=== PATIENT | female | born 1980 | race Caucasian/White ===

== ENCOUNTER → 2017-01-15 | Day surgery (SDC) | payer OTHER ==
[~2017-01-15] VITALS: Ht 152.4 cm; Wt 105.2 kg
[~2017-01-15] MED LIST: ALBUTEROL0.09 MG/A1 INH; AUGMENTIN 500-1 EACH PO; BACTRIM 400-801 EACH PO; BACTRIM DS 8001 TAB PO; CEPHALEXIN500 M3 PO; CHLORHEXIDINE TOP; DIFLUCAN150 MG PO; IBUPROFEN600 M1 PO; KEFLEX500 MG PO; MIRENA1 EACH PO; TRAMADOL50 MG PO
[2017-01-15 10:49] LABS: ABSOLUTE BASOPHIL COUNT 0.1 /CUMM (0.0-0.2); ABSOLUTE EOSINOPHIL COUNT 0.2 /CUMM (0.0-0.7); ABSOLUTE GRANULOCYTE CT 5.8 /CUMM (1.4-6.5); ABSOLUTE LYMPH COUNT 2.8 /CUMM (1.2-3.4); ABSOLUTE MONOCYTE COUNT 0.6 /CUMM (0.10-0.60); BASOPHIL % 0.6 % (0.0-2.0); EOSINOPHIL % 1.8 % (0-5); GRANULOCYTE % 61.6 % (42.2-75.2); HEMATOCRIT 41.2 % (37-47); MEAN CORPUSCULAR VOLUME 87.7 FL (81.0-99.0); MEAN PLATELET VOLUME 6.8 FL (7.4-10.4); PLATELET COUNT 389 /CUMM (130-400); RBC DISTRIBUTION WIDTH 12.4 % (11.5-14.5); WHITE BLOOD CELL COUNT 9.4 /CUMM (4.8-10.8)
--- NOTE | 2017-01-16 10:32 | Operative Report ---
Operative/Inv Procedure Report Surgery Date: 01/15/17 Name of Procedure: Bilateral reduction mammoplasty Pre-Operative Diagnosis: Symptomatic macromastia Post-Operative Diagnosis: Same Estimated Blood Loss: scant (200) Surgeon/Bank Cashier: GWEN QUIROGA MD Anesthesia: general endotracheal tube Operative/Procedure Note Note: The procedure the alternatives the risks and expected outcomes were discussed with the patient in regards to her request for surgical intervention to treat symptomatic macromastia. The patient was given a pass PS informed consent which she return sign has no further questions regarding it. Discussed definitely visible scarring possibly unsightly or symptomatic hematoma seroma infection bleeding pain and definite asymmetry. She was advised further weight loss could result in breasts are too small for her liking. She agreed to proceed at this weight. She was marked in the standing position for an inferior pedicle Mcbride pattern technique with the use of a measuring tape. She was brought to the operative placed supine on the table. Venodyne boots are placed and then general endotracheal anesthesia was established intravenous antibiotics were given. The chest was prepped and draped in usual sterile fashion. A free pedicle Mcbride pattern technique was performed resecting superior medial and lateral quadrants. She was then put in the sitting position to rupesh the nipple areola complexes. 3 layer closure was carried out of all wounds. End dictation
== END ==
LOC: STS 01:12
PROVIDERS: Surgery Plastic and Reconstructive Surgery
DX: N62 Hypertrophy of breast (principal); J45.909 Unspecified asthma, uncomplicated; Z87.891 Personal history of nicotine dependence; Z22.322 Carrier or suspected carrier of Methicillin resistant Staphylococcus aureus
CPT/HCPCS: 36415; 81025; 88305; J0131; J0690; J1100; J2250; J2405; J3250

== ENCOUNTER 2017-01-24 11:34 | Inpatient (IN) | payer OTHER ==
[~2017-01-24] VITALS: Ht 149.9 cm; Wt 97.5 kg
[~2017-01-24 11:34] MED LIST changes: -CEPHALEXIN500 M3 PO
--- NOTE | 2017-01-24 11:43 | NUR ---
C/O PAIN, SWELLING AND YELLOW DRAINAGE TO LEFT BREAST INCISION LINE X 4 DAYS. S/P BREAST REDCUCTION ON 01/[address] QUIROGA YESTERDAY, PUT ON KEFLEX, HAS HAD 5 DOSES, PAIN AND SWELLING WORSE TODAY.
--- NOTE | 2017-01-24 12:04 | NUR ---
OLIVE KIDD AT BEDSIDE FOR EVAL.
--- NOTE | 2017-01-24 12:09 | ED SKIN/ALLERGY COMPLAINT ---
History of Present Illness General Chief Complaint: General Adult Stated Complaint: BREAST SURGERY X 8 DAYS C/O INFECTION Source: patient Exam Limitations: no limitations Vital Signs & Intake/Output Vital Signs & Intake/Output Vital Signs Date Time Temp Pulse Resp B/P Pulse O2 O2 Flow FiO2 Ox Delivery Rate 01/24 1341 97.4 76 18 124/85 98 Room Air 01/24 1141 96.8 111 16 117/83 97 Room Air Allergies Coded Allergies: No Known Drug Allergies (Intermediate, NONE 01/24/17) shellfish derived (SWELLING AROUND AND IN EYES, ITCHING THROAT 03/05/16) Reconcile Medications Albuterol Sulfate (Albuterol Sulfate Hfa) 0.09 MG/Actuation LEE 2 PUFF INH PRN ASTHMA (Reported) 90 MCG PER PUFF Cephalexin 500 MG CAPSULE 1 CAP PO BID CELLULITIS (Reported) Ibuprofen 600 MG TABLET 1 TAB PO TID PAIN with food Levonorgestrel (Mirena) 52 MG ICR CONTROL (Reported) Triage Note: CO PAIN, SWELLING AND YELLOW DRAINAGE TO LEFT BREAST INCISION LINE X 4 DAYS. S/P BREAST REDCUCTION ON 01/[address] QU[address]GA[address] QUIROGA YESTERDAY, PUT ON KEFLEX, HAS HAD 5 DOSES, PAIN AND SWELLING WORE TODAY. Triage Nurses Notes Reviewed? yes : No Patient currently breastfeeds: No HPI: 36-year-old female arrived through triaged to room #7 for evaluation of bilateral breast pain. She had a breast reduction with Dr. Snow one week ago. She started with increased pain in both of her breasts along with increased drainage to incision areas. She saw Dr. Snow yesterday and was started on cephalexin. She was instructed to come to the emergency department if pain, swelling and drainage got worse. She reports the pain is moderate to severe and the drainage is worse. She denies fever or chills, abdominal pain. She denies nausea vomiting or diarrhea. (MARTI CARDENAS APRN) Past History Travel History Traveled to [place] past 21 day No Medical History Any Pertinent Medical History? see below for history Neurological: NONE EENT: NONE Cardiovascular: NONE Respiratory: asthma Gastrointestinal: NONE Hepatic: NONE Renal: NONE Musculoskeletal: NONE Psychiatric: NONE Endocrine: NONE Blood Disorders: NONE Cancer(s): NONE JUDICIAL REGISTRAR/Reproductive: NONE Other Medical Hx: Pilonidal cyst Surgical History Surgical History: BILATERAL BREAST REDUCTION Psychosocial History What is your primary language Kazakh Tobacco Use: Never used ETOH Use: denies use Illicit Drug Use: denies illicit drug use Family History Hx Contributory? No (MARTI CARDENAS APRN) Review of Systems Review of Systems Constitutional: Reports: no symptoms. EENTM: Reports: no symptoms. Respiratory: Reports: no symptoms. Cardiovascular: Reports: no symptoms. GI: Reports: no symptoms. Genitourinary: Reports: no symptoms. Musculoskeletal: Reports: no symptoms. Skin: Reports: see HPI. Neurological/Psychological: Reports: no symptoms. Hematologic/Endocrine: Reports: no symptoms. Immunologic/Allergic: Reports: no symptoms. All Other Systems: Reviewed and Negative (MARTI CARDENAS APRN) Physical Exam Physical Exam General Appearance: well developed/nourished, mild distress Head: atraumatic Eyes: Bilateral: PERRL, EOMI. Ears, Nose, Throat: normal pharynx, normal ENT inspection, hearing grossly normal Neck: normal inspection, supple Respiratory: normal breath sounds Cardiovascular: regular rate/rhythm Gastrointestinal: soft, non-tender Back: normal inspection Extremities: normal inspection, normal range of motion, no edema Neurologic/Psych: awake, alert, oriented x 3, normal mood/affect Skin: BILATERAL BREAST ERYTHEMA, INDURATION, SEROUS DRAINAGE FROM INCISION SITES BILATERAL BREAST RIGHT WORSE THAN LEFT. eXCORIATED AREAS TO RIGHT BREAST Lymphatic: no anterior cervical adriana Diagram Chest, Abdomen, Back: 1) Erythema, induration 2) Erythema, induration 3) Incision site drainage with serous fluid 4) In incision site drainage with serous fluid (MARTI CARDENAS APRN) Progress Differential Diagnosis: CELLULITIS MASTITIS Plan of Care: Orders Procedure Date/time Status CBC WITHOUT DIFFERENTIAL 01/25 0600 Active Pathway - chart 01/24 1418 Active Add-on Test (ER Only) 01/24 1354 Active Pathway - chart 01/24 1339 Active House Staff 01/24 1339 Active Code Status 01/24 1339 Active Pathway - chart 01/24 1337 Active Patient Data 01/24 1328 Active TRUNK AREA CULTURE 01/24 1323 Active Admit to inpatient 01/24 1321 Active LACTIC ACID 01/24 1214 Complete Saline Lock 01/24 1210 Active Add-on Test (ER Only) 01/24 1210 Active BLOOD CULTURE 01/24 1210 Active HUMAN BETA HCG SCREEN 01/24 121 Complete COMPREHENSIVE METABOLIC PANEL 01/24 121 Complete CBC WITHOUT DIFFERENTIAL 01/24 1210 Complete VTE Mechanical Prophylaxis 01/24 UNK Active Vital Signs 01/24 UNK Active Intake & Output 01/24 UNK Active PHYSICIAN CONSULT 01/24 UNK Active Current Medications Sig/Angy Start time Last Medication Dose Stop Time Status Admin Vancomycin HCl 1,000 MG Q12H 01/25 0130 AC Dextrose/Water 250 ML (D5W) Acetaminophen 650 MG Q6P PRN 01/24 1430 AC (Tylenol) Acetaminophen/ 1 TAB Q6P PRN 01/24 1430 AC Hydrocodone Bitart (Vicodin) Albuterol Sulfate 2 PUF Q4 HRS NEEDED PRN 01/24 143 AC (Ventolin) Ibuprofen 600 MG Q6P PRN 01/24 143 CAN (Motrin) Morphine Sulfate 2 MG Q4P PRN 01/24 1430 AC (Morphine) Enoxaparin Sodium 40 MG DAILY 01/24 1339 AC (Lovenox) Laboratory Tests 01/24/17 1337: Lactic Acid Cancelled 01/24/17 1214: Anion Gap 9, Estimated GFR > 60, BUN/Creatinine Ratio 13.3, Glucose 111 H, Lactic Acid 1.4, Calcium 9.2, Total Bilirubin 0.4, AST 30, ALT 55 H, Alkaline Phosphatase 69, Total Protein 6.5, Albumin 3.5, Globulin 3.0, Albumin/Globulin Ratio 1.2, Total Beta HCG NEGATIVE, CBC w Diff NO MAN DIFF REQ, RBC 4.13 L, MCV 87.9, MCH 28.7, RDW 12.9, MPV 6.3 L, Gran % 68.9, Lymphocytes % 22.9, Monocytes % 2.6, Eosinophils % 5.4 H, Basophils % 0.2, Absolute Granulocytes 10.4 H, Absolute Lymphocytes 3.4, Absolute Monocytes 0.4, Absolute Eosinophils 0.8, Absolute Basophils 0, PUBS MCHC 32.7 L Microbiology 01/24 133 TRUNK: Culture & Sensitivity - RECD 01/24 1338 TRUNK: Gram Stain - RECD 01/24 1218 BLOOD: Blood Culture - RECD 01/24 1214 BLOOD: Blood Culture - RECD Comments: 1:12 PM I spoke to Mitch Quiroga MD. I will call the hospitalist and admit her to medicine for cellulitis and he will be in the hospital on Thursday if she is still here. He instructed me to have her do Xeroform dressings daily, warm showers and to check for MRSA with wound culture. 1:54 PM Xeroform dressing applied by me. MRSA culture sent from left breast guarding notified and orders being placed. Vancomycin 1 g being administered at this point for history of MRSA in the past. (MARTI CARDENAS APRN) Departure Departure Time of Disposition: 1326 Disposition: STILL A PATIENT Condition: Stable Clinical Impression Primary Impression: Cellulitis Qualifiers: Site of cellulitis: other site Qualified Code: L03.818 - Cellulitis of other sites Referrals: AVEL WILLS,CATHERINE Moe (PCP/Family) Departure Forms: Customer Survey General Discharge Information Admission Note Spoke With: ELI WILLS,AMBAR Petit Documentation of Exam: Documentation of any treatments & extenuating circumstances including Concerns Regarding Discharge (functional status, medication knowledge or non-compliance, living conditions, etc.) that warrant an admission rather than observation: The patient will be admitted to general medicine for IV antibiotics coverage for MRSA also IV pain medication. She failed outpatient antibiotics, infection getting worse. I spoke to Ambar Queen MD and Mitch Quiroga MD. (MARTI CARDENAS APRN) PA/CHIPPER MACHINE OPERATOR Co-Sign Statement Statement: ED Attending supervision documentation- [X] I saw and evaluated the patient. I have also reviewed all the pertinent lab results and diagnostic results. I agree with the findings and the plan of care as documented in the PA's/CHIPPER MACHINE OPERATOR's documentation. [X] I have reviewed the ED Record and agree with the PA's/CHIPPER MACHINE OPERATOR's documentation. [] Additions or exceptions (if any) to the PAs/CHIPPER MACHINE OPERATOR's note and plan are summarized below: [] (TRICE WILLS,ARIEL Durant)
--- NOTE | 2017-01-24 12:25 | NUR ---
PT MEDICATED PER EMAR AT THIS TIME
[2017-01-24 12:29] LABS: ABSOLUTE BASOPHIL COUNT 0 /CUMM (0.0-0.2); ABSOLUTE EOSINOPHIL COUNT 0.8 /CUMM (0.0-0.7); ABSOLUTE GRANULOCYTE CT 10.4 /CUMM (1.4-6.5); ABSOLUTE LYMPH COUNT 3.4 /CUMM (1.2-3.4); ABSOLUTE MONOCYTE COUNT 0.4 /CUMM (0.10-0.60); BASOPHIL % 0.2 % (0.0-2.0); EOSINOPHIL % 5.4 % (0-5); GRANULOCYTE % 68.9 % (42.2-75.2); HEMATOCRIT 36.3 % (37-47); MEAN CORPUSCULAR HGB 28.7 PG (27.0-31.0); MEAN CORPUSCULAR HGB CONC 32.7 G/DL (33.0-37.0); MEAN CORPUSCULAR VOLUME 87.9 FL (81.0-99.0); MEAN PLATELET VOLUME 6.3 FL (7.4-10.4); PLATELET COUNT 596 /CUMM (130-400); RBC DISTRIBUTION WIDTH 12.9 % (11.5-14.5); RED BLOOD CELL CT 4.13 /CUMM (4.20-5.40)
--- NOTE | 2017-01-24 13:19 | NUR ---
PT STATES PAIN ISNT ANY BETTER AFTER MEDICATION ADMINISTRATION. ELIGIBILITY WORKER AWARE
--- NOTE | 2017-01-24 13:28 | NUR ---
PT MEDICATED WITH 4MG MORPINE PER ORDER AT THIS TIME.
--- NOTE | 2017-01-24 13:40 | NUR ---
IV VANCO INFUISNG PER ORDER AT THIS TIME. PROCESS DEVELOPMENT ENGINEER AT BEDSIDE TO DISUCSS PLAN OF CARE WITH PT.
--- NOTE | 2017-01-24 13:53 | NUR ---
PT TO ROOM [id number]
--- NOTE | 2017-01-24 14:01 | Admission Certification ---
Admission Certification Certification Statement - As attending physician, I certify that at the time of - admission, based on clinical presentation, severity of - symptoms, need for further diagnostic testing and - therapeutic interventions, and risk of adverse outcomes - without in-hospital treatment, in my clinical assessment, - this patient requires an acute hospital stay for a minimum - of two nights or longer. I have also considered psychsocial - factors such as support system, advanced age, financial - issues, cognitive issues, and failed out-patient treatments, - past re-admission history, safety of patient, and lack of - compliance as applicable. Specific rationale supporting this admission is: Cellulitis with some purulence in a patient with breast reduction surgery and previous history of MRSA.
[2017-01-24] MEDS ORDERED: CEPHALEXIN500 M3 PO (14:20)
--- NOTE | 2017-01-24 14:21 | NUR ---
REPORT GIVEN TO FLOOR. DISTRIBUTION CALLED FOR TRANSPORT
--- NOTE | 2017-01-24 14:42 | History & Physical ---
BRIDGET YUNG MD 01/24/17 1433: General Information and HPI History of Present Illness: 36 year old woman with past medical history of asthma seen for evaluation of bilateral breast pain. On 01/16/17 patient underwent bilateral breast reduction surgery with Dr. Blas. Approximately 4-5 days ago patient began to experience worsening pain in the surgical incision sites with a rash and associated clear drainage over the next several days. She was seen by Dr. Blas in the office on 01/23/17 and given a course of Keflex with instruction to report to the ED should her symptoms acutely worsen. Presently she reports persistent moderate bilateral breast pain with drainage. She also comments on a progressive with with upper middle chest swelling/ fullness. There is associated nonbreast breast pain described as pins/needles in various locations of her chest. Otherwise she denies any headache, fever, chills, palpitations, shortness of breath, cough, nausea, vomiting, diarrhea. PMHx - Asthma, pilonidal cyst, MRSA Social History - Patient does not smoke or drink Allergies/Medications Allergies: Coded Allergies: No Known Drug Allergies (Intermediate, NONE 01/24/17) shellfish derived (SWELLING AROUND AND IN EYES, ITCHING THROAT 03/05/16) Home Med list Albuterol Sulfate (Albuterol Sulfate Hfa) 0.09 MG/Actuation LEE 2 PUFF INH PRN ASTHMA (Reported) 90 MCG PER PUFF Cephalexin 500 MG CAPSULE 1 CAP PO BID CELLULITIS (Reported) Ibuprofen 600 MG TABLET 1 TAB PO TID PAIN with food Levonorgestrel (Mirena) 52 MG ICR CONTROL (Reported) Past History Travel History Traveled to [place] past 21 day No Medical History Neurological: NONE EENT: NONE Cardiovascular: NONE Respiratory: asthma Gastrointestinal: NONE Hepatic: NONE Renal: NONE Musculoskeletal: NONE Psychiatric: NONE Endocrine: NONE Blood Disorders: NONE Cancer(s): NONE TICKET COLLECTOR OR USHER/Reproductive: NONE Other Medical Hx: Pilonidal cyst Surgical History Surgical History: BILATERAL BREAST REDUCTION Past Family/Social History Psychosocial History Smoking Status: Former Smoker ETOH Use: denies use Illicit Drug Use: denies illicit drug use Review of Systems Review of Systems Constitutional: Reports: see HPI. Exam & Diagnostic Data Last 24 Hrs of Vital Signs/I&O Vital Signs Date Time Temp Pulse Resp B/P Pulse O2 O2 Flow FiO2 Ox Delivery Rate 01/24 1341 97.4 76 18 124/85 98 Room Air 01/24 1141 96.8 111 16 117/83 97 Room Air Intake & Output 01/24 1600 01/24 0800 01/24 0000 Intake Total Output Total Balance Patient 97.522 kg Weight Physical Exam General Appearance Alert, Oriented X3, Cooperative, No Acute Distress Skin Indurated/Erythematous rash under bilateral breast with scant amount of clear drainage HEENT Atraumatic, EOMI, Mucous Membr. moist/pink Neck Supple Cardiovascular Regular Rate, Normal S1, Normal S2, No Murmurs Lungs Clear to Auscultation, Normal Air Movement Abdomen Normal Bowel Sounds, Soft, No Tenderness, No Hepatospenomegaly, No Masses Neurological Normal Speech, Normal Tone, Cranial Nerves 3-12 NL Extremities No Clubbing, No Cyanosis, No Edema, Normal Pulses, No Tenderness/ Swelling Vascular Normal Pulses, Pulses Symmetrical Breasts Skin changes described as above, Recent surgical incisions that appears infected, Mid/upper chest fullness with swelling Last 24 Hrs of Labs/Maciej: Laboratory Tests 01/24/17 1337: Lactic Acid Cancelled 01/24/17 1214: Anion Gap 9, Estimated GFR > 60, BUN/Creatinine Ratio 13.3, Glucose 111 H, Lactic Acid 1.4, Calcium 9.2, Total Bilirubin 0.4, AST 30, ALT 55 H, Alkaline Phosphatase 69, Total Protein 6.5, Albumin 3.5, Globulin 3.0, Albumin/Globulin Ratio 1.2, Total Beta HCG NEGATIVE, CBC w Diff NO MAN DIFF REQ, RBC 4.13 L, MCV 87.9, MCH 28.7, RDW 12.9, MPV 6.3 L, Gran % 68.9, Lymphocytes % 22.9, Monocytes % 2.6, Eosinophils % 5.4 H, Basophils % 0.2, Absolute Granulocytes 10.4 H, Absolute Lymphocytes 3.4, Absolute Monocytes 0.4, Absolute Eosinophils 0.8, Absolute Basophils 0, PUBS MCHC 32.7 L Microbiology 01/24 1338 TRUNK: Culture & Sensitivity - RECD 01/24 1338 TRUNK: Gram Stain - RECD 01/24 1218 BLOOD: Blood Culture - RECD 01/24 121 BLOOD: Blood Culture - RECD Assessment/Plan Assessment: 36 year old woman with signficant past medical history of MRSA seen one week after bilateral breast reduction surgery complaining of chest pain, rash, swelling, and drainage from the surgical incisions. ED Course: -Vitals: Temp 96.8-97.4, HR 76-111, RR 16-18, BP 117-124/83-85, O2 97-98% on room air -Significant Labs: WBC 15.0, Hgb/Hct 11.9/36.3, Plt 596, normal serum chemistries, lactic acid 1.4, AST/ALT 30/55, b-HCG negative -Studies:None -Interventions: Vancomycin 1g IV, Unasyn 3g IV, Morphine 6mg, Blood Cultures, Trunk Cultures Surgical Incision Cellulitis / Sepsis Patient with history of MRSA and recent bilateral breast reduction surgery seen for developement of a rash and drainage of the surgical incision sites. Patient meets criteria for sepsis with tachycardia and leukocystosis with her obvious cell wall cellulitis. Lactic acid normal. -General Medicine -Vancomycin 1g IV Q12H -Plastic surgery consult -Follow up cultures & sensitivities Asthma-Albuterol PRN Pain Plan- Acetaminophen/Oxycodone/Morphine Diet-Regular Diet DVT PPx- Lovenox Code Status- FULL CODE As Ranked By This Provider Problem List: 1. Cellulitis Qualifiers Site of cellulitis: other site Qualified Code: L03.818 - Cellulitis of other sites 2. Abscess or cellulitis of chest wall Core Measures/Miscellaneous Acute Coronary Syndrome ACS Diagnosis: No Cerebrovascular Accident CVA/TIA Diagnosis: No Congestive Heart Failure CHF Diagnosis: No Venous Thromboembolism VTE Risk Factors: Acute medical illness, Obesity No Mech VTE prophylaxis d/t: No contraindications No VTE Pharm Prophylaxis d/t: No contraindications VTE Diagnosis: No VTE Type: NONE VTE Confirmed by (Test): NONE Severe Sepsis Severe Sepsis Present: No Septic Shock Septic Shock Present: No Miscellaneous Documentation Attending Case Discussed With: ELI WILLS,SARAH Petit Primary Care Physician: CATHERINE VALLECILLO MD Patient sees these Specialists Dr. Blas Level of Patient Care: General Medicine Consults Needed: Consulting Specialty: Plastic Surgery PATRICIA WILLS,FRANK 01/24/17 1624: Resident Review Statement Resident Statement: examined this patient, discussed with technology development intern, agreed with technology development intern, discussed with family, reviewed EMR data (avail), discussed with nursing , reviewed images, amended to note Other Findings: 36 yo female with pmh of asthma, morbid obesity (BMI 43), hx of MRSA abcess ( 2016), s/p bilateral breast reduction surgery on 01/15/[address] Blas came from home with bilateral breast cellulitis. She had worsening pain, edema and clear fluid drainage about 4-5 days ago. She didn't have fever. She was seen by Dr. Blas 1 DA and was given po cephalexin. However, her symptoms got worsened and she came to ED today. She c/o bilateral breast fullness and sharp/needle-like pain 01/09. She was taking advil/vicodin at home. V/S: afebrile, tachycardia at 111, BP 117/83, Labs: WBC 15, lactic acid normal, b-hcg normal. No imaging tests done. 1. Bilateral breast cellulitis: blood cultures & superficial wound cultures were sent from ED. Will treat her with IV vancomycin 1g q12 for possible MRSA cellulitis with recent surgery. Plastic surgery was contacted in ED. I spoke with Dr. Blas regarding patient care, and he recommended daily xeroform dressing change with conservative management. Will use pain pathway to manage pain. 2. Hx of asthma: c/w home dose INH as needed. 3. Morbid obesity: follow up primary doctor as outpt for a long-term weight loss plan. DVT ppx: SC lovenox, full code. pain pathway. SRAAH BENITEZ MD 01/24/17 1720: Attending MD Review Statement Attending Statement Attending MD Statement: examined this patient, discuss w/resident/PA/FLOWER CUTTER, agreed w/resident/PA/FLOWER CUTTER, reviewed EMR data (avail), discussed with nursing, discussed with case mgmt, reviewed images Attending Assessment/Plan: 36-year-old female with morbid obesity as documented by a BMI of 40 status post recent breast reduction surgery who is here with what appears to be a cellulitis. Along the incision lines there is erythema and some serosanguineous discharge. She has a white count of 15,000 and tachycardic to 111 and this is despite getting by mouth Keflex by the plastic surgeon. At this point will bring her into general med, give IV Vanco as she has grown MRSA in the past and I am worried about an MRSA infection. Treat her symptomatically for pain, put her on DVT prophylaxis and call plastic surgery for an official consult. Treat her mild persistent intermittent asthma with an albuterol inhaler when necessary.
[2017-01-24 15:26] VITALS: BP 112/62
--- NOTE | 2017-01-24 16:00 | NUR ---
NURSING NOTE: PT ARRIVED TO FLOOR VIA STRETCHER AT 1500. PT A&O, VSS CHARTED. DSG TO SOLANGE BREAST CDI. SOLANGE BREAST AND UNDER BREAST NOTED TO BE RED AND SWOLLEN AND PAINFUL TO TOUCH. PT STATED PAIN OF 3/10 AT TIME OF ADMISSION. PT ORIENTED TO ROOM AND CALL FONTANA. WILL CONTINUE TO MONITOR.
[2017-01-24 22:06] VITALS: BP 112/80
[2017-01-25 06:55] LABS: ABSOLUTE BASOPHIL COUNT 0 /CUMM (0.0-0.2); ABSOLUTE EOSINOPHIL COUNT 0.7 /CUMM (0.0-0.7); ABSOLUTE GRANULOCYTE CT 9.3 /CUMM (1.4-6.5); ABSOLUTE LYMPH COUNT 3.3 /CUMM (1.2-3.4); ABSOLUTE MONOCYTE COUNT 0.9 /CUMM (0.10-0.60); BASOPHIL % 0.3 % (0.0-2.0); EOSINOPHIL % 5.2 % (0-5); HEMATOCRIT 34.5 % (37-47); MEAN CORPUSCULAR HGB 28.8 PG (27.0-31.0); MEAN CORPUSCULAR HGB CONC 32.6 G/DL (33.0-37.0); MEAN CORPUSCULAR VOLUME 88.2 FL (81.0-99.0); MEAN PLATELET VOLUME 6.2 FL (7.4-10.4); PLATELET COUNT 573 /CUMM (130-400); RBC DISTRIBUTION WIDTH 13.1 % (11.5-14.5); RED BLOOD CELL CT 3.91 /CUMM (4.20-5.40); WHITE BLOOD CELL COUNT 14.4 /CUMM (4.8-10.8)
[2017-01-25 07:31] VITALS: BP 119/56
--- NOTE | 2017-01-25 08:54 | PN- Housestaff ---
AGA WILLS,BRIDGET 01/25/17 0853: Subjective Follow-up For: Bilateral breast cellulitis status post breast reduction surgery Subjective: Patient seen and examined. She is seen sitting upright in bed resting comfortably. She appears to be in no acute distress. She states that the swelling in her chest has gone down today but admits to persistent pain/ discomfort under her breasts with scant amount of clear drainage. Otherwise she feels fine and denies any subjective fever and is requesting to be discharged. She denies any lightheadedness/dizziness, headache, chills, chest pain, palpitations, shortness of breath, cough, nausea, vomiting, diarrhea. No overnight events reported. Review of Systems Constitutional: Reports: see HPI. Objective Last 24 Hrs of Vital Signs/I&O Vital Signs Date Time Temp Pulse Resp B/P Pulse O2 O2 Flow FiO2 Ox Delivery Rate 01/25 0731 98.5 89 18 119/56 94 Room Air 01/24 2206 98.6 84 18 112/80 98 Room Air 01/24 1526 98.1 96 20 112/62 98 Room Air Room Air 01/24 1341 97.4 76 18 124/85 98 Room Air Intake & Output 01/25 1600 01/25 0800 01/25 0000 Intake Total 760 1080 Output Total Balance 760 1080 Intake, IV 280 Intake, Oral 480 1080 Physical Exam General Appearance: Alert, Oriented X3, Cooperative, No Acute Distress Other Physical Findings: General -well-developed, well-nourished obese woman in no acute distress HEENT - NCAT, PERRL, EOMI, anicteric sclera Cardio - S1, S2 w/o murmurs/gallops/rubs Breasts-diffuse tenderness to chest with erythematous/indurated surgical incisions associated with scant clear drainage under bilateral breasts, tense nonfluctuant swelling to upper/mid chest Resp - CTA bilaterally w/o wheezing/rhochi/crackles GI - soft, nontender, nondistended, bowel sounds present Neuro - Awake and alert, CN II - XII grossly intact Extremities - no edema, pulses intact Current Medications: Current Medications Sig/Angy Start time Last Medication Dose Route Stop Time Status Admin Acetaminophen 650 MG Q6P PRN 01/24 1430 AC PO Acetaminophen/ 1 TAB Q6P PRN 01/24 1430 AC 01/25 Hydrocodone Bitart PO 1110 Albuterol Sulfate 2 PUF Q4 HRS NEEDED PRN 01/24 1430 AC INH Enoxaparin Sodium 40 MG DAILY@1700 01/25 1700 AC SC Enoxaparin Sodium 40 MG DAILY 01/24 1339 DC 01/24 SC 1718 Ibuprofen 600 MG Q6P PRN 01/24 1430 CAN PO Morphine Sulfate 2 MG Q4P PRN 01/24 1430 AC IV Patient Medication 1 UNIT ONE NR 01/24 1415 DC 01/24 Teaching ED 01/24 1500 1717 Vancomycin HCl 1,000 MG Q12H 01/25 0130 AC 01/25 Dextrose/Water 250 ML IV 1257 Vancomycin HCl 1,000 MG ONCE ONE 01/24 1330 DC 01/24 Dextrose/Water 250 ML IV 01/24 1429 1339 Last 24 Hrs of Lab/Maciej Results Last 24 Hrs of Labs/Mics: Laboratory Tests 01/25/17 0620: CBC w Diff NO MAN DIFF REQ, RBC 3.91 L, MCV 88.2, MCH 28.8, RDW 13.1, MPV 6.2 L, Gran % 65.0, Lymphocytes % 23.1, Monocytes % 6.4, Eosinophils % 5.2 H, Basophils % 0.3, Absolute Granulocytes 9.3 H, Absolute Lymphocytes 3.3, Absolute Monocytes 0.9 H, Absolute Eosinophils 0.7, Absolute Basophils 0, PUBS MCHC 32.6 L Assessment/Plan Assessment: Patient's physical exam demonstrates mildly clinically improved chest wall cellulitis. Patient was reportedly seen by Dr. Snow last night who made no formal recommendations. Given patient's history of MRSA patient is to be continued on intravenous antibiotics for another 24 hours and will be discharged on an equivalent oral antibiotic with instruction to follow-up with Dr. Snow in his office after discharge for further evaluation. Surgical Incision Cellulitis / Sepsis Patient with history of MRSA and recent bilateral breast reduction surgery seen for developement of a rash and drainage of the surgical incision sites. Patient meets criteria for sepsis with tachycardia and leukocystosis with her obvious cell wall cellulitis. Lactic acid normal. -General Medicine -Vancomycin 1g IV Q12H -Plastic surgery consult -Follow up cultures & sensitivities Asthma-Albuterol PRN Pain Plan- Acetaminophen/Oxycodone/Morphine Diet-Regular Diet DVT PPx- Lovenox Code Status- FULL CODE Problem List: 1. Cellulitis Pain Ratin Pain Location: Bilateral breasts Pain Goal: Pain 4 or less Pain Plan: See assessment Tomorrow's Labs & Rationales: CBC-cellulitis BEP-vancomycin Consulting Request: Consulting Specialty: Plastic Surgery SARAH BENITEZ MD 01/25/17 1022: Attending MD Review Statement Attending Statement Attending MD Statement: examined this patient, discuss w/resident/PA/CAN LINE OPERATOR, agreed w/resident/PA/CAN LINE OPERATOR, reviewed EMR data (avail), discussed with nursing, discussed with case mgmt Attending Assessment/Plan: Overall patient is feeling better however the incision areas remain very tender. We have her on IV Vanco for a suspected MRSA cellulitis status post breast reduction. White count gone from 15-14. I think she needs to stay for another 24 hours get some IV antibiotics, we need to be reassured that the white count going down in the right direction and likely discharge in a.m. with outpatient oral antibiotics and plastic surgery follow-up.
[2017-01-25 14:31] VITALS: BP 112/78
--- NOTE | 2017-01-25 22:30 | NUR ---
NURSING NOTE: LATE ENTRY, PT C/O OF TIGHTNESS AND FULLNESS IN CHEST. PT STATES CHEST PAIN LASTS FOR TWO MINUTES AND COMES AND GOES AND STATES SHE HAS BEEN FEELING LIKE THIS ALL DAY. VSS, AFEBRILE, CUTTER GRIND TOOL TECHNICIAN 204 MADE AWARE. NO FURTHER ACTIONS AT THIS TIME UNLESS PT C/O CHEST PAIN W/ SOB OR RADIATION TO JAW. WILL CONTINUE TO MONITOR.
[2017-01-25 22:47] VITALS: BP 104/70
[2017-01-26 06:29] VITALS: BP 123/73
--- NOTE | 2017-01-26 07:24 | PN- Housestaff ---
AGA WILLS,BRIDGET 01/26/17 0723: Subjective Follow-up For: Bilateral breast cellulitis status post breast reduction surgery Subjective: Patient seen and examined. She is seen sitting upright in bed resting comfortably. She appears to be in no acute distress. She states that she feels better today and reports mild improvement of her swelling/pain in her chest. She does admit to occasional chest wall pain described as pins and needles that has been persistent since the surgery. She denies any new subjective complaints today and is requesting to go home. Additionally she denies any headache, fever, chills, chest pain, palpitations, shortness of breath, cough, nausea, vomiting, diarrhea. No overnight events reported. Review of Systems Constitutional: Reports: see HPI. Objective Last 24 Hrs of Vital Signs/I&O Vital Signs Date Time Temp Pulse Resp B/P Pulse O2 O2 Flow FiO2 Ox Delivery Rate 01/26 0629 98.0 87 22 123/73 95 Room Air 01/25 2247 98.2 97 19 104/70 96 01/25 1431 97.8 88 18 112/78 97 Room Air Room Air Intake & Output 01/26 1600 01/26 0800 01/26 0000 Intake Total 120 940 Output Total Balance 120 940 Intake, Oral 120 940 Physical Exam General Appearance: Alert, Oriented X3, Cooperative, No Acute Distress Other Physical Findings: General -well-developed, well-nourished obese woman in no acute distress HEENT - NCAT, PERRL, EOMI, anicteric sclera Cardio - S1, S2 w/o murmurs/gallops/rubs Breasts-mild chest wall/breast tenderness with scant amount of clear drainage associated with surgical sites and marketed improvement to the erythematous induration in these breast folds Resp - CTA bilaterally w/o wheezing/rhochi/crackles GI - soft, nontender, nondistended, bowel sounds present Neuro - Awake and alert, CN II - XII grossly intact Extremities - no edema, pulses intact Current Medications: Current Medications Sig/Angy Start time Last Medication Dose Route Stop Time Status Admin Acetaminophen 650 MG Q6P PRN 01/24 1430 AC PO Acetaminophen/ 1 TAB Q6P PRN 01/24 1430 AC 01/26 Hydrocodone Bitart PO 0644 Albuterol Sulfate 2 PUF Q4 HRS NEEDED PRN 01/24 1430 AC INH Enoxaparin Sodium 40 MG DAILY@1700 01/25 1700 01/25 SC 1734 Morphine Sulfate 2 MG Q4P PRN 01/24 1430 01/25 IV 1541 Vancomycin HCl 1,000 MG Q12H 01/25 0130 01/26 Dextrose/Water 250 ML IV 0031 Last 24 Hrs of Lab/Maciej Results Last 24 Hrs of Labs/Mics: Laboratory Tests 01/26/17 0625: Anion Gap 8, Estimated GFR > 60, BUN/Creatinine Ratio 12.9, CBC w Diff Pending, WBC Pending, RBC Pending, Hgb Pending, Hct Pending, MCV Pending, MCH Pending, RDW Pending, Plt Count Pending, MPV Pending, Gran % Pending, Lymphocytes % Pending, Monocytes % Pending, Eosinophils % Pending, Basophils % Pending, Absolute Granulocytes Pending, Absolute Lymphocytes Pending, Absolute Monocytes Pending, Absolute Eosinophils Pending, Absolute Basophils Pending, PUBS MCHC Pending Assessment/Plan Assessment: Patient has clinically improving surgical site cellulitis while maintained on intravenous vancomycin for MRSA coverage. Microbiology reports demonstrate growth of coagulase negative Staphylococcus from the trunk most likely guest experience representative of normal skin gabe/contaminant. Ultrasound of the breast were obtained today that demonstrate bilateral large complex appearing fluid collections seen in the deep soft tissues consistent with large complex seroma cavities. Plastic surgery consult recommendations pending, call back requested from the office of Dr. Snow. Surgical Incision Cellulitis / Sepsis Patient with history of MRSA and recent bilateral breast reduction surgery seen for developement of a rash and drainage of the surgical incision sites. Patient meets criteria for sepsis with tachycardia and leukocystosis with her obvious chest wall cellulitis. Lactic acid normal. Ultrasound of the bilateral breasts demonstrated large complex appearing fluid collections seen in the deep soft tissues. -General Medicine -Vancomycin 1g IV Q12H -Plastic surgery consult -Trunk culture: Coagulase-negative Staphylococcus -Follow up cultures & sensitivities Asthma-Albuterol PRN Pain Plan- Acetaminophen/Oxycodone/Morphine Diet-Regular Diet DVT PPx- Lovenox Code Status- FULL CODE Problem List: 1. Abscess and cellulitis Pain Ratin Pain Location: Bilateral breasts Pain Goal: Pain 4 or less Pain Plan: See assessment Tomorrow's Labs & Rationales: None Consulting Request: Consulting Specialty: Plastic Surgery TRUDY SUE 01/26/17 1706: Attending MD Review Statement Attending Statement Attending MD Statement: examined this patient, discuss w/resident/PA/CAR LOADER, agreed w/resident/PA/CAR LOADER, reviewed EMR data (avail), discussed with nursing, discussed with case mgmt Attending Assessment/Plan: Patient seen and examined at bedside. Patient feels her pain and swelling has gone down in the breast area. But patient continues to have high white count so we will do a soft tissue ultrasound of the breast to rule out any abscesses. Soft tissue ultrasound of the breast was done and showed questionable fluid collections. We will discuss this finding with the plastic surgeon and formulate a plan accordingly. Continue current antibiotics. Discussed with patient the care plan
--- NOTE | 2017-01-26 07:27 | Patient Discharge Instructions ---
Discharge Instructions General Discharge Information You were seen/treated for: Bilateral surgical site infection, status post bilateral breast reduction surgery You had these procedures: Ultrasound guided aspiration of collection Special Instructions: YOU ARE LEAVING AGAINST MEDICAL ADVICE. Follow up with Dr. Snow on Thursday or earlier for further care and evaluation of your recent surgery. Please return to emergency if symptoms worsen. Continue all your previous medications. Diet Continue normal diet: Yes Activity Full Activity/No Limits: Yes Acute Coronary Syndrome Inclusion Criteria At DC or during hospital stay patient has or had the following: ACS DIAGNOSIS No Discharge Core Measures Meds if any: Prescribed or Continued at Discharge Meds if any: NOT Prescribed or Continued at Discharge Congestive Heart Failure Inclusion Criteria At DC or during hospital stay patient has or had the following: CHF DIAGNOSIS No Discharge Core Measures Meds if any: Prescribed or Continued at Discharge Meds if any: NOT Prescribed or Continued at Discharge Cerebrovascular accident Inclusion Criteria At DC or during hospital stay patient has or had the following: CVA/TIA Diagnosis No Discharge Core Measures Meds if any: Prescribed or Continued at Discharge Meds if any: NOT Prescribed or Continued at Discharge Venous thromboembolism Inclusion Criteria VTE Diagnosis No VTE Type NONE VTE Confirmed by (Test) NONE Discharge Core Measures - Per Current guidelines, there needs to be overlap - treatment for the first 5 days of Warfarin therapy. - If discharged on Warfarin prior to 5 days of - overlap therapy, the patient will need to be - assessed for post discharge needs including - *Post discharge parental anticoagulation - *Warfarin and/or parental anticoagulation education - *Follow up date to check INR post discharge At least 5 days overlap therapy as Inpatient No Meds if any: Prescribed or Continued at Discharge Note: Overlap Therapy is Warfarin and Anticoagulant Meds if any: NOT Prescribed or Continued at Discharge
[2017-01-26 08:42] LABS: ABSOLUTE BASOPHIL COUNT 0 /CUMM (0.0-0.2); ABSOLUTE EOSINOPHIL COUNT 0.7 /CUMM (0.0-0.7); ABSOLUTE GRANULOCYTE CT 9.5 /CUMM (1.4-6.5); ABSOLUTE LYMPH COUNT 3.7 /CUMM (1.2-3.4); ABSOLUTE MONOCYTE COUNT 0.9 /CUMM (0.10-0.60); BASOPHIL % 0.2 % (0.0-2.0); EOSINOPHIL % 4.4 % (0-5); GRANULOCYTE % 64.3 % (42.2-75.2); HEMATOCRIT 35.5 % (37-47); MEAN CORPUSCULAR HGB 28.9 PG (27.0-31.0); MEAN CORPUSCULAR HGB CONC 32.8 G/DL (33.0-37.0); MEAN CORPUSCULAR VOLUME 88.3 FL (81.0-99.0); MEAN PLATELET VOLUME 6.6 FL (7.4-10.4); PLATELET COUNT 558 /CUMM (130-400); RBC DISTRIBUTION WIDTH 13.1 % (11.5-14.5); RED BLOOD CELL CT 4.02 /CUMM (4.20-5.40); WHITE BLOOD CELL COUNT 14.7 /CUMM (4.8-10.8)
--- NOTE | 2017-01-26 11:32 | NUR ---
NURSING NOTE: PATIENT A/OX3, PAIN ADEQUATELY CONTROLLED AT THIS TIME. DRSG TO BILATERAL BREASTS IN PLACE. PATIENT LEFT FLOOR VIA STRETCHER WITH DISTRIBUTION FOR ULTRASOUND. WILL AWAIT RETURN.
--- NOTE | 2017-01-26 12:51 | NUR ---
NURSING NOTE: PATIENT RETURNED TO FLOOR VIA STRETCHER WITH DISTRIBUTION FROM ULTRASOUND. PATIENT A/OX3, DRSG TO BILATERAL BREASTS CHANGED UPON ARRIVAL. WILL CONTINUE TO MONITOR.
--- NOTE | 2017-01-26 12:59 | ULTRASOUND REPORT ---
EXAMINATION: US BREAST, BILATERAL, DIAGNOSTIC CLINICAL INFORMATION: Rash and persistent leukocytosis status post bilateral reduction mammoplasty 01/15/2017. Positive staph cultures from skin discharge. Evaluate for breast abscess. COMPARISON: None TECHNIQUE: High-resolution grayscale sonography of the breasts was performed by a technologist with a high frequency linear transducer following a standardized protocol. All 4 quadrants of each breast including retroareolar and axillary areas were imaged. Real-time assessment by the reading radiologist was performed. FINDINGS: Left breast: In the deep soft tissues of the 3 to 4:00 position of the left breast, 20 cm from the nipple, a complex appearing 9.7 x 3.3 x 11.5 cm focal irregularly-shaped fluid collection is seen with multiple internal septations, some of which are mildly thickened. With color Doppler imaging, no definite internal flow is identified. The overlying skin throughout the inferior left breast is abnormally thickened and mildly hyperemic, measuring up to 0.5 cm in thickness. No significant fluid collections are seen in the upper left breast. No axillary adenopathy is seen. Right breast: In the deep soft tissues of the 3:00 position of the right breast, 10 cm from the nipple, an elongated loculated fluid collection is seen with thin internal septations and no vascular flow, measuring at least 8.0 x 1.0 x 4.6 cm. A second complex fluid collection with internal septations and no vascular flow is seen in the right breast 9:00, 15 cm from the nipple, measuring at least 11.2 x 4.0 x 10.8 cm. A small fluid collection is seen in the upper outer quadrant of the right breast as well on real-time scanning. This was not specifically measured. Diffuse skin thickening is seen, measuring up to 0.5 cm in thickness, primarily in the inner and outer lower breast. No axillary adenopathy is seen. IMPRESSION: 1. Bilateral large complex appearing fluid collections are seen bilaterally in the deep soft tissues of the breasts, primarily involving the lower outer quadrant of the left breast and the lower outer and lower inner quadrants of the right breast. Findings are most consistent with large complex seroma cavities. Close clinical correlation is requested to assess for superinfection of these fluid collections/abscesses in the setting of positive bacterial cultures. 2. Diffuse bilateral skin edema and thickening and hyperemia, most prominently involving the inferior aspects of both breasts, consistent with cellulitis. ASSESSMENT: ACR BI-RADS 2: Benign finding. RECOMMENDATIONS: Management, including aspiration/drainage/debridement as clinically appropriate. Findings discussed with Dr. Carmen Stephens, 01/26/2017, 12:45 PM.
[2017-01-26 15:35] VITALS: BP 122/70
--- NOTE | 2017-01-26 20:13 | NUR ---
pt crying and wanted young daughter to sleep over withher tariq. advised she can not be left unattended. pt mentioned leaving ama. requested supervisor diagnostic talk to pt before contacting public relations intern. spoke [facility] public relations intern #[id number], will come and speak to pt shortly. pt advised.
[2017-01-26 21:59] VITALS: BP 132/82
[2017-01-27 06:46] VITALS: BP 138/78
--- NOTE | 2017-01-27 06:55 | PN- Housestaff ---
See Addendum Subjective Follow-up For: Bilateral breast/surgical site infection following breast reduction surgery Complaints: no complaints Subjective: I followed up and examined the patient today. She is resting comfortably on bed , not in any acute distress, vitals have been stable overnight, and the only concern she has his whether her plastic surgeon would come and follow-up with her regarding her plan of care/follow-up. Her vitals have been stable, she has been afebrile, but her white count has increased to 17.4 from 14.7 today. Her wound is being dressed regularly and does not have any purulent/bloody drainage. Review of Systems Constitutional: Reports: no symptoms. EENTM: Reports: no symptoms. Cardiovascular: Reports: no symptoms. Respiratory: Reports: no symptoms. Gastrointestinal: Reports: no symptoms. Genitourinary: Reports: no symptoms. Musculoskeletal: Reports: no symptoms. Skin: Reports: see HPI. Neurological/Psychological: Reports: no symptoms. Hematologic/Endocrine: Reports: no symptoms. Objective Last 24 Hrs of Vital Signs/I&O Vital Signs Date Time Temp Pulse Resp B/P Pulse O2 O2 Flow FiO2 Ox Delivery Rate 01/27 0646 97.6 104 20 138/78 95 Room Air 01/26 2159 97.3 93 20 132/82 96 Room Air 01/26 1535 98.0 95 22 122/70 98 Room Air Intake & Output 01/27 1600 01/27 0800 01/27 0000 Intake Total 850 Output Total Balance 850 Intake, IV 250 Intake, Oral 600 Physical Exam General Appearance: Alert, Oriented X3, Cooperative, No Acute Distress Other Physical Findings: Physical examnination: General: obese patient, not in distress Skin: Warm and dry; below both her breasts, after the breast reduction surgery, transverse incision just over the skin fold can be seen, which appears to be healthy and is regularly being dressed, currently with Bacitracin ointment, no pus or blood seen on gross examination, and the wound seems to be healing well while there still are areas where the skin flaps have not fused yet Head: Normocephalic, atraumatic Eyes: Pupils normal in size, regular, reacting to light and accommodation, EOM normal Ears: B/l normal on inspection Nose: Normal on inspection Throat/mouth: Moist mucosa Neck: Supple, full range of motion, no thyromegaly Heart: Regular rate, regular rhythm Lung: Normal breath sound bilaterally Added sound not heard Abd: Soft, non-tender, no distention appreciated Back: Normal range of motion Extremities: Normal knee exam bilaterally, no pedal edema, Distal neurovascular intact Neurologic: Alert, oriented x3, Cranial exam grossly intact, Speech is clear and coherent Psychiatric: Calm, cooperative, coherant Current Medications: Current Medications Sig/Angy Start time Last Medication Dose Route Stop Time Status Admin Acetaminophen 650 MG .STK-MED ONE 01/26 1252 DC PO 01/26 1253 Acetaminophen 650 MG Q6P PRN 01/24 1430 AC PO Acetaminophen/ 1 TAB Q6P PRN 01/24 1430 AC 01/27 Hydrocodone Bitart PO 0617 Albuterol Sulfate 2 PUF Q4 HRS NEEDED PRN 01/24 1430 AC INH Enoxaparin Sodium 40 MG DAILY@1700 01/25 1700 AC 01/26 SC 1647 Morphine Sulfate 2 MG Q4P PRN 01/24 1430 AC 01/25 IV 1541 Patient Medication 1 ED .STK-MED ONE 01/26 1356 DC Teaching ED 01/26 1357 Vancomycin HCl 1,000 MG Q12H 01/25 0130 AC 01/27 Dextrose/Water 250 ML IV 0058 Last 24 Hrs of Lab/Maciej Results Last 24 Hrs of Labs/Mics: Laboratory Tests 01/27/17 1140: Random Vancomycin Pending 01/27/17 0800: CBC w Diff NO MAN DIFF REQ, RBC 4.08 L, MCV 88.3, MCH 29.1, RDW 12.9, MPV 6.5 L, Gran % 72.1, Lymphocytes % 20.1 L, Monocytes % 2.3, Eosinophils % 5.3 H, Basophils % 0.2, Absolute Granulocytes 12.5 H, Absolute Lymphocytes 3.5 H, Absolute Monocytes 0.4, Absolute Eosinophils 0.9, Absolute Basophils 0, PUBS MCHC 33.0 Assessment/Plan Assessment: 36-year-old female with past medical history of asthma, and morbid obesity, and a history of MRSA in 2016, presented to the emergency department after undergoing bilateral breast reduction surgery on 01/16/2017 with complaints of worsening pain and rash at surgical sites bilaterally. She took one dose of Keflex before coming to the ED. She reported yellowish drainage, pain, and rash which required further investigation and was admitted. She is currently being managed in the general medical floor for the following issues: #Bilateral surgical site infection Clinically getting better, although her lab work showed leukocytosis today, and recent ultrasonogram showed bilateral areas of cystic collection, with a differential of seroma, abscess, hematoma, among others. Of note, her surgical site simple culture grew staph negative which is coagulase negative and possibly is a contamination /normal skin gabe. She has been on vancomycin admission, but did have leukocytosis today despite vancomycin. -Plastic surgeon Dr Blas, who was the plastic surgeon for the initial operation, has been on board and suggested infectious disease consultation today. -Infectious disease Dr Romeo consulted the patient, and suggested to follow her off antibiotic, with the reasoning that she had leukocytosis despite being on vancomycin, and rest of her vitals have been stable. -Also, plan to tap the cystic areas bilaterally for diagnostic/therapeutic purpose -Appreciate ID consult Update: 1630 hrs: Patient was wondering if she can go home with oral antibiotics tomorrow. I explained about her current condition and the plans in detail to her. She agreed to undergo the procedure tomorrow and wait for the results, and only then she would decide on staying or leaving AMA. #Asthma-Albuterol PRN Pain Plan- Acetaminophen/Oxycodone/Morphine Diet-Regular Diet DVT PPx- Lovenox Code Status- FULL CODE Problem List: 1. Deep incisional surgical site infection Pain Ratin Pain Location: surgical sites bilaterally Pain Goal: Pain 4 or less Pain Plan: prn Tomorrow's Labs & Rationales: CBC, aspirate analysis bilaterally ultrasound guided Consulting Request: Consulting Specialty: Plastic Surgery
[2017-01-27 08:25] LABS: ABSOLUTE BASOPHIL COUNT 0 /CUMM (0.0-0.2); ABSOLUTE EOSINOPHIL COUNT 0.9 /CUMM (0.0-0.7); ABSOLUTE GRANULOCYTE CT 12.5 /CUMM (1.4-6.5); ABSOLUTE LYMPH COUNT 3.5 /CUMM (1.2-3.4); ABSOLUTE MONOCYTE COUNT 0.4 /CUMM (0.10-0.60); BASOPHIL % 0.2 % (0.0-2.0); EOSINOPHIL % 5.3 % (0-5); GRANULOCYTE % 72.1 % (42.2-75.2); MEAN CORPUSCULAR HGB 29.1 PG (27.0-31.0); MEAN CORPUSCULAR VOLUME 88.3 FL (81.0-99.0); MEAN PLATELET VOLUME 6.5 FL (7.4-10.4); PLATELET COUNT 522 /CUMM (130-400); RBC DISTRIBUTION WIDTH 12.9 % (11.5-14.5); RED BLOOD CELL CT 4.08 /CUMM (4.20-5.40)
[2017-01-27 08:53] LABS: WHITE BLOOD CELL COUNT 17.4 /CUMM (4.8-10.8)
--- NOTE | 2017-01-27 08:58 | Event Note ---
Event Note Event Note: 0855hrs: Called the office/answering service for Dr Mitch Blas requesting an urgent call back to me as the patient wants to be discharged and wants to know the plan regarding plastic surgery and follow up. She has a regular appointment on February 02, 2017 per patient. I have requested an urgent callback and am waiting for it. Resident notified. 1230 hrs: Met Dr Mitch Blas, plastic surgeon, and discussed about the need to work up on her deep-seated bilateral fluid collections at the surgical sites, and surgical site infection. He suggested to consult infectious disease service, and that he was comfortable sending the patient home with antibiotic and a follow-up to plastic surgery. However, he did mention if ID service did want further investigation including aspiration of the collection, analysis, and/or changing her antibiotics, he would go for it. He clearly stated that the patient currently did not warrant a revision or any kind of procedure in the operation theatre. He did not have any particular choice of antibiotic when we discussed about Ms Ochoa. -Resident and attending doctors notified. -Infectious disease Dr. Nick Romeo requested for consultation.
[2017-01-27 10:15] VITALS: BP 128/70
--- NOTE | 2017-01-27 14:03 | NUR ---
NURSING NOTE: 1330 VANCO DOSE ON HOLD PENDING ID CONSULT. DOSE MAY BE INCREASED.
[2017-01-27 14:44] VITALS: BP 124/63
--- NOTE | 2017-01-27 15:42 | Cons- Infect Disease ---
General Information and HPI Consulting Request Date of Consult: 01/27/17 Requested By: TRUDY SUE MD Reason for Consult: Rule out breast cellulitis Source of Information: patient, old records History of Present Illness: This is a 36-year-old woman with a history of asthma, possible rheumatoid arthritis, recurrent skin lesions, with MRSA isolated from one lesion nearly one year prior to admission, and morbid obesity, status post bilateral breast reductions 9 days prior to admission, with Cefazolin prophylaxis, with the development of chest "tightness" and fullness 5 days postop, with yellow drainage from the incisions without associated fevers, chills or systemic symptoms, begun on Keflex one day prior to admission for a possible cellulitis, admitted on January 23 after presenting to the emergency room with increasing breast swelling and discomfort and drainage from the left breast. On admission she was afebrile. Laboratory data revealed a white blood cell count of 15,000, BUN/creatinine 8 and 0.6, AST/ALT 30 and 55. She was begun on Vancomycin and has remained afebrile since admission; however her white blood cell count has remained elevated. She does note improvement in her "tightness" and notes minimal discomfort in both breasts with no further drainage. She has no other symptoms at this time and specifically denies any respiratory, GI or symptoms. Allergies/Medications Allergies: Coded Allergies: No Known Drug Allergies (Intermediate, NONE 01/24/17) shellfish derived (SWELLING AROUND AND IN EYES, ITCHING THROAT 03/05/16) Home Med List: Albuterol Sulfate (Albuterol Sulfate Hfa) 0.09 MG/Actuation LEE 2 PUFF INH PRN ASTHMA (Reported) 90 MCG PER PUFF Cephalexin 500 MG CAPSULE 1 CAP PO BID CELLULITIS (Reported) Ibuprofen 600 MG TABLET 1 TAB PO TID PAIN with food Levonorgestrel (Mirena) 52 MG ICR CONTROL (Reported) Past History Travel History Traveled to [place] past 21 day No Medical History Blood Transfusion Hx: No Neurological: NONE EENT: NONE Cardiovascular: NONE Respiratory: asthma Gastrointestinal: NONE Hepatic: NONE Renal: NONE Musculoskeletal: rheumatoid arthritis (possible) Psychiatric: NONE Endocrine: NONE Blood Disorders: NONE Cancer(s): NONE BREAD ROOM HAND/Reproductive: NONE Other Medical Hx: Pilonidal cyst History of MRSA: Yes History of VRE: No History of CDIFF: No Isolation History: Contact Surgical History Surgical History: BILATERAL BREAST REDUCTION Psychosocial History Where Do You Live? Home Services at Home: None Smoking Status: Former Smoker ETOH Use: denies use Illicit Drug Use: denies illicit drug use Review of Systems Review of Systems Respiratory: Denies: cough, short of breath. GI: Denies: abdominal pain, diarrhea, nausea, vomiting. Genitourinary: Reports: no symptoms. Musculoskeletal: Reports: joint pain. All Other Systems: Reviewed and Negative Exam & Diagnostic Data Last 24 Hrs of Vital Signs/I&O Vital Signs Date Time Temp Pulse Resp B/P Pulse O2 O2 Flow FiO2 Ox Delivery Rate 01/27 1444 97.6 83 20 124/63 97 Room Air 01/27 1015 96 128/70 01/27 0646 97.6 104 20 138/78 95 Room Air 01/26 2159 97.3 93 20 132/82 96 Room Air 01/26 1535 98.0 95 22 122/70 98 Room Air Intake & Output 01/27 1600 01/27 0800 01/27 0000 Intake Total 800 850 Output Total Balance 800 850 Intake, IV 250 Intake, Oral 800 600 Physical Exam Other Physical Findings: She is awake and alert in no acute distress. She is afebrile. Skin reveals no rash. HEENT exam is negative. Neck is supple with no adenopathy. Lungs are clear. Heart regular rhythm with no murmur. Breasts swelling of both breasts, with erythema, right greater than left, with extension laterally to the right chest wall, minimally tender to palpation; incisions with no erythema or drainage presently; healed lesion over the xiphoid area, with no surrounding inflammation. Abdomen is obese, soft, nontender with positive bowel sounds. Back no CVA tenderness. Extremities no cyanosis, clubbing or edema. Neuro is without focality. Last 24 Hours of Lab Results: Laboratory Tests 01/27 01/27 1140 0800 Hematology CBC w Diff NO MAN DIFF REQ WBC (4.8 - 10.8 /CUMM) 17.4 H RBC (4.20 - 5.40 /CUMM) 4.08 L Hgb (12.0 - 16.0 G/DL) 11.9 L Hct (37 - 47 %) 36.0 L MCV (81.0 - 99.0 FL) 88.3 MCH (27.0 - 31.0 PG) 29.1 RDW (11.5 - 14.5 %) 12.9 Plt Count (130 - 400 /CUMM) 522 H MPV (7.4 - 10.4 FL) 6.5 L Gran % (42.2 - 75.2 %) 72.1 Lymphocytes % (20.5 - 51.1 %) 20.1 L Monocytes % (1.7 - 9.3 %) 2.3 Eosinophils % (0 - 5 %) 5.3 H Basophils % (0.0 - 2.0 %) 0.2 Absolute Granulocytes (1.4 - 6.5 /CUMM) 12.5 H Absolute Lymphocytes (1.2 - 3.4 /CUMM) 3.5 H Absolute Monocytes (0.10 - 0.60 /CUMM) 0.4 Absolute Eosinophils (0.0 - 0.7 /CUMM) 0.9 Absolute Basophils (0.0 - 0.2 /CUMM) 0 PUBS MCHC (33.0 - 37.0 G/DL) 33.0 Toxicology Random Vancomycin (ug/ml) 6.9 Last 24 Hours of Maciej Results: Blood cultures 2 January 24 negative Superficial drainage from the left breast January 24 positive for coag-negative Staph Diagnostic Data Recent Imaging Findings: Bilateral breast ultrasound January 26 reveals a complex appearing 9.7 x 3.3 x 11.5 cm focal irregularly-shaped fluid collection with multiple internal septations in the left breast and an elongated loculated fluid collection with thin internal septations, measuring 8 x 1 x 4.6 cm, a second complex fluid collection with internal septations, measuring 11 x 4 x 10.8 cm, and a small fluid collection in the upper outer quadrant of the right breast Assessment/Plan Assessment/Plan Impression: This is a 36-year-old woman with a history of recurrent skin infections status post bilateral breast reduction 9 days prior to admission admitted on January 24 with a 3 day history of bilateral breast "tightness" with mild erythema and drainage, found to be afebrile with a leukocytosis, treated empirically with Vancomycin with reported improvement in her "tightness" but with persistent leukocytosis and with an ultrasound revealing bilateral large complex appearing fluid collections in the deep soft tissues of the breasts. I am concerned about the possibility that these collections, which are felt to represent seromas, may be infected, particular with her persistent leukocytosis, and feel that aspiration and, if found to be infected, drainage, should be pursued. There does appear to be an element of cellulitis, particularly on the right breast, but, if she does have a deeper infection, she will require drainage in order to resolve this process. The significance of the coag-negative Staph is unclear as this is a superficial culture and, therefore, may represent contamination. She does have a history of MRSA, and this may certainly be her pathogen, but, as her white blood cell count has not responded to Vancomycin, feel that she can be followed off antibiotics pending further evaluation. Suggestion: 1. Would pursue aspiration and, possibly drainage, of the collections in both breasts (discussed with IR) 2. Discontinue Vancomycin and follow off antibiotics pending above Consult Acknowledgment - Thank you for your consult request.
[2017-01-27 21:58] VITALS: BP 126/70
--- NOTE | 2017-01-28 06:36 | PN- Housestaff ---
Subjective Follow-up For: Bilateral breast surgical site infection following breast reduction surgery Complaints: no complaints Subjective: I followed him and examined the patient today. She is resting comfortably in bed, without any acute distress, vitals have been stable overnight without fever. Labs pending today. She still complains of bilateral breast fullness/tightening, but not as much pain, over left more than right side. No discharge from the incision sites either. Of note, she did mention that she wants to go home after the aspiration is done and if there is no abscess. I explained to her the advantages of getting IV medication and continue monitoring while in the hospital compared to leaving AMA with oral antibiotics at home. She has agreed to wait for the procedure today and then decide depending on the results. She is off antibiotics currently. Review of Systems Constitutional: Reports: no symptoms. EENTM: Reports: no symptoms. Cardiovascular: Reports: no symptoms. Respiratory: Reports: no symptoms. Gastrointestinal: Reports: no symptoms. Genitourinary: Reports: no symptoms. Musculoskeletal: Reports: no symptoms. Skin: Reports: no symptoms. Neurological/Psychological: Reports: no symptoms. Hematologic/Endocrine: Reports: no symptoms. Objective Last 24 Hrs of Vital Signs/I&O Vital Signs Date Time Temp Pulse Resp B/P Pulse O2 O2 Flow FiO2 Ox Delivery Rate 01/28 0733 98.3 95 18 118/68 94 Room Air 01/27 2158 97.5 84 18 126/70 96 Room Air 01/27 1444 97.6 83 20 124/63 97 Room Air 01/27 1015 96 128/70 Intake & Output 01/28 0800 01/28 0000 01/27 1600 Intake Total 0 800 800 Output Total Balance 0 800 800 Intake, Oral 0 800 800 Physical Exam General Appearance: Alert, Oriented X3, Cooperative, No Acute Distress Other Physical Findings: General: morbidly obese patient, not in distress Breast/Skin exam: Warm and dry; below both her breasts, incision line is visible incision just over the skin folds which appears to be healthy and is regularly being dressed, currently with Bacitracin ointment, no pus or blood seen on gross examination, and the wound seems to be healing well while there still are areas where the skin flaps have not fused yet. There is mild tenderness present over 2 -3 o'clock position over her right breast, and tightness/fullness rather than pain over 3 o'clock position of her left breast. Head: Normocephalic, atraumatic Eyes: Pupils normal in size, regular, reacting to light and accommodation, EOM normal Ears: B/l normal on inspection Nose: Normal on inspection Throat/mouth: Moist mucosa Neck: Supple, full range of motion, no thyromegaly Heart: Regular rate, regular rhythm Lung: Normal breath sound bilaterally Added sound not heard Abd: Soft, non-tender, no distention appreciated Back: Normal range of motion Extremities: Normal knee exam bilaterally, no pedal edema, Distal neurovascular intact Neurologic: Alert, oriented x3, Cranial exam grossly intact, Speech is clear and coherent Psychiatric: Calm, cooperative, coherant Current Medications: Current Medications Sig/Angy Start time Last Medication Dose Route Stop Time Status Admin Acetaminophen 650 MG Q6P PRN 01/24 1430 AC PO Acetaminophen/ 1 TAB Q6P PRN 01/24 1430 AC 01/27 Hydrocodone Bitart PO 2102 Albuterol Sulfate 2 PUF Q4 HRS NEEDED PRN 01/24 1430 AC INH Enoxaparin Sodium 40 MG DAILY@1700 01/25 1700 AC 01/27 SC 1625 Morphine Sulfate 2 MG Q4P PRN 01/24 1430 AC 01/25 IV 1541 Vancomycin HCl 1,000 MG Q12H 01/25 0130 DC 01/27 Dextrose/Water 250 ML IV 0058 Last 24 Hrs of Lab/Maciej Results Last 24 Hrs of Labs/Mics: Laboratory Tests 01/28/17 0624: Anion Gap 6, Estimated GFR > 60, BUN/Creatinine Ratio 11.4, PT Pending, INR Pending, CBC w Diff Pending, WBC Pending, RBC Pending, Hgb Pending, Hct Pending, MCV Pending, MCH Pending, RDW Pending, Plt Count Pending, MPV Pending, PUBS MCHC Pending 01/27/17 1140: Random Vancomycin 6.9 01/27/17 0800: CBC w Diff NO MAN DIFF REQ, RBC 4.08 L, MCV 88.3, MCH 29.1, RDW 12.9, MPV 6.5 L, Gran % 72.1, Lymphocytes % 20.1 L, Monocytes % 2.3, Eosinophils % 5.3 H, Basophils % 0.2, Absolute Granulocytes 12.5 H, Absolute Lymphocytes 3.5 H, Absolute Monocytes 0.4, Absolute Eosinophils 0.9, Absolute Basophils 0, PUBS MCHC 33.0 Microbiology 01/28 705 BODY FLUID: Body Fluid Culture - ORD 01/28 705 BODY FLUID: Gram Stain - ORD 01/28 700 BODY FLUID: Body Fluid Culture - ORD 01/28 700 BODY FLUID: Gram Stain - ORD Assessment/Plan Assessment: 36-year-old female with past medical history of asthma, and morbid obesity, and a history of MRSA in 2016, presented to the emergency department after undergoing bilateral breast reduction surgery on 01/16/2017 with complaints of worsening pain and rash at surgical sites bilaterally. She took one dose of Keflex before coming to the ED. She reported yellowish drainage, pain, and rash which required further investigation and was admitted. She is currently being managed in the general medical floor for the following issues: UPDATE:: 1600 hrs:: Patient wanted to leave the hospital abandoning her current medical care. She was explained about her situation and the necessity to continue her treatment, including IV antibiotics if necessary depending on her culture reports tomorrow, and to monitor her as an inpatient. She understood that she still required care, but did want to leave anyway and clearly understood that that would be AGAINST MEDICAL ADVICE. She was counseled by attending doctor Dr Goldberg, me (legal summer intern), and the nursing staff about the her situation and the type of care she would require if she were to leave AMA. She was discharged finally AMA, without any antibiotic as the cultures were pending and she was having worsening leucocytosis despite on IV Vancomycin earlier, but was suggested to return to emergency immediately if symptoms worsen, and to follow-up with plastic surgeon on or before this Thursday, which she agreed to do so. #Bilateral surgical site infection Clinically getting better, although her lab work showed leukocytosis today, and recent ultrasonogram showed bilateral areas of cystic collection, with a differential of seroma, abscess, hematoma, among others. Of note, her surgical site simple culture grew staph negative which is coagulase negative and possibly is a contamination /normal skin gabe. She was on vancomycin since admission, which was discontinued yesterday after ID consultation. -Plastic surgeon Dr Blas, who was the plastic surgeon for the initial operation, who suggested consultation with ID. -Infectious disease Dr Romeo consulted the patient, and suggested to follow her off antibiotic for now and to get a diagnostic/therapeutic tap under ultrasound guidance bilaterally, and study the fluid with stains and cultures -We'll plan antibiotics/strain his, all depending on results later today -Appreciate ID consult #Asthma-Albuterol PRN Pain Plan- Acetaminophen/Oxycodone/Morphine Diet-Regular Diet DVT PPx- Lovenox Code Status- FULL CODE Problem List: 1. Deep incisional surgical site infection Pain Ratin Pain Location: incision site, when present b/l Pain Goal: Pain 4 or less Pain Plan: prn Tomorrow's Labs & Rationales: CBC to follow for sepsis. cancelled as she left AMA. Consulting Request: Consulting Specialty: Plastic Surgery
[2017-01-28 07:33] VITALS: BP 118/68
[2017-01-28 08:03] LABS: ABSOLUTE BASOPHIL COUNT 0.1 /CUMM (0.0-0.2); ABSOLUTE EOSINOPHIL COUNT 1.1 /CUMM (0.0-0.7); ABSOLUTE GRANULOCYTE CT 14.2 /CUMM (1.4-6.5); ABSOLUTE LYMPH COUNT 3.5 /CUMM (1.2-3.4); ABSOLUTE MONOCYTE COUNT 0.8 /CUMM (0.10-0.60); BASOPHIL % 0.5 % (0.0-2.0); EOSINOPHIL % 5.8 % (0-5); HEMATOCRIT 35.4 % (37-47); MEAN CORPUSCULAR HGB 28.9 PG (27.0-31.0); MEAN CORPUSCULAR HGB CONC 33.1 G/DL (33.0-37.0); MEAN CORPUSCULAR VOLUME 87.4 FL (81.0-99.0); MEAN PLATELET VOLUME 6.7 FL (7.4-10.4); PLATELET COUNT 498 /CUMM (130-400); RBC DISTRIBUTION WIDTH 13.3 % (11.5-14.5); RED BLOOD CELL CT 4.05 /CUMM (4.20-5.40); WHITE BLOOD CELL COUNT 19.7 /CUMM (4.8-10.8)
[2017-01-28 08:28] LABS: PT 11.5 SEC (9.4-12.5)
--- NOTE | 2017-01-28 13:20 | PN- Infect Dx ---
Subjective Subjective: Afebrile. She reports increased discomfort in both breasts. She has had no further drainage. Objective Last 24 Hrs of Vital Signs/I&O Vital Signs Date Time Temp Pulse Resp B/P Pulse O2 O2 Flow FiO2 Ox Delivery Rate 01/28 0733 98.3 95 18 118/68 94 Room Air 01/27 2158 97.5 84 18 126/70 96 Room Air 01/27 1444 97.6 83 20 124/63 97 Room Air Intake & Output 01/28 1600 01/28 0800 01/28 0000 Intake Total 0 800 Output Total Balance 0 800 Intake, Oral 0 800 Physical Exam Other Physical Findings: She appears uncomfortable but in no acute distress Breasts bilateral swelling, tender to palpation, with minimal erythema and no drainage Results Last 24 Hours of Lab Results: Laboratory Tests 01/28 01/28 01/28 1214 1200 0624 Chemistry Sodium (137 - 145 mmol/L) 135 L Potassium (3.5 - 5.1 mmol/L) 4.3 Chloride (98 - 107 mmol/L) 101 Carbon Dioxide (22 - 30 mmol/L) 28 Anion Gap (5 - 16) 6 BUN (7 - 17 mg/dL) 8 Creatinine (0.5 - 1.0 mg/dL) 0.7 Estimated GFR (>60 ml/min) > 60 BUN/Creatinine Ratio (7 - 25 %) 11.4 Coagulation PT (9.4 - 12.5 SEC) 11.5 INR (0.90 - 1.19) 1.10 Hematology CBC w Diff NO MAN DIFF REQ WBC (4.8 - 10.8 /CUMM) 19.7 H RBC (4.20 - 5.40 /CUMM) 4.05 L Hgb (12.0 - 16.0 G/DL) 11.7 L Hct (37 - 47 %) 35.4 L MCV (81.0 - 99.0 FL) 87.4 MCH (27.0 - 31.0 PG) 28.9 RDW (11.5 - 14.5 %) 13.3 Plt Count (130 - 400 /CUMM) 498 H MPV (7.4 - 10.4 FL) 6.7 L Gran % (42.2 - 75.2 %) 72.0 Lymphocytes % (20.5 - 51.1 %) 17.7 L Monocytes % (1.7 - 9.3 %) 4.0 Eosinophils % (0 - 5 %) 5.8 H Basophils % (0.0 - 2.0 %) 0.5 Absolute Granulocytes (1.4 - 6.5 /CUMM) 14.2 H Absolute Lymphocytes (1.2 - 3.4 /CUMM) 3.5 H Absolute Monocytes (0.10 - 0.60 /CUMM) 0.8 H Absolute Eosinophils (0.0 - 0.7 /CUMM) 1.1 Absolute Basophils (0.0 - 0.2 /CUMM) 0.1 PUBS MCHC (33.0 - 37.0 G/DL) 33.1 Other Body Source Fluid WBC Pending Pending Fld Total RBCs Counted Pending Pending Last 24 Hours of Maciej Results: Blood cultures January 24 negative Assessment/Plan Impression: Inflammation of both breasts persists status post breast reduction 9 days prior to admission, with no fevers but with increasing white blood cell count, now off antibiotics. She is scheduled later today for aspiration/drainage of the fluid collections seen on ultrasound, which were felt to represent seromas, but with concern for possible superinfection. Of interest she has increased eosinophils on her CBC differentials, which might suggest an allergic process, though this should not cause an elevated white blood cell count. Suggestion: 1. Await aspiration and, possibly drainage, of the collections in both breasts later today 2. Continue to follow off antibiotics pending above
[2017-01-28 14:28] VITALS: BP 126/70
--- NOTE | 2017-01-28 14:34 | ULTRASOUND REPORT ---
PROCEDURE: US GUIDED DRAINAGE CHEST WALL SEROMA, BILATERAL CLINICAL INFORMATION: Status post breast reduction with postoperative fluid collections with question of abscess. COMPARISON: None CONSENT: Informed consent was obtained from the patient prior to the procedure. During this process, the procedure and potential alternatives were explained, along with the intended outcome and benefits. The risks of the procedure including the possibility of an unsuccessful procedure, as well as the risk of not doing the procedure were discussed. The patient was given the opportunity to ask questions regarding the procedure and appeared competent to make decisions. A signed consent form documenting this discussion was placed in the medical record. A time-out procedure was performed. ACCESS: Left chest and right chest. CONTRAST: None SEDATION: None MEDICATIONS: 1% lidocaine for local anesthesia. GUIDANCE: Ultrasound COMPLICATIONS: None PROCEDURE: 1. Initial procedure was performed on the left. Preliminary ultrasound showed moderate-sized fluid collection at the inferior lateral aspect of the left breast. The area was prepped and draped using maximal sterile barrier technique. All elements of maximal sterile barrier technique followed including use of cap, mask, sterile gown, sterile gloves, a sterile full body drape and hand hygiene. Also followed skin preparation with 2% chlorhexidine for cutaneous antisepsis, and sterile ultrasound preparation with sterile gel and probe cover. After installation of 1% lidocaine subcutaneously, a 18-gauge Yueh needle/sheath with multiple sideholes was inserted into the fluid collection. Clear yellow fluid was obtained. A sample was obtained for laboratory exams. A total of 330 mL was removed. A repeat ultrasound of the left breast after the procedure showed no residual fluid. 2. Attention was then turned to the right breast. Preliminary ultrasound showed moderate-sized fluid collection at the inferior lateral aspect of the right breast. The area was prepped and draped using maximal sterile barrier technique. All elements of maximal sterile barrier technique followed including use of cap, mask, sterile gown, sterile gloves, a sterile full body drape and hand hygiene. Also followed skin preparation with 2% chlorhexidine for cutaneous antisepsis, and sterile ultrasound preparation with sterile gel and probe cover. After installation of 1% lidocaine subcutaneously, a 18-gauge Yueh needle/sheath with multiple sideholes was inserted into the right-sided fluid collection. Clear yellow fluid was obtained. A sample was obtained for laboratory exams. A total of 300 mL was removed. A repeat ultrasound of the right breast after the procedure showed no residual fluid. IMPRESSION: Successful evacuation of bilateral breast seromas. Separate samples from each side were sent for the requested laboratory exams.
--- NOTE | 2017-01-28 16:30 | Discharge Summary ---
Visit Information Visit Dates Admission Date: 01/24/17 Discharge Date: 01/28/17 Hospital Course Course Attending Physician: TRUDY GOLDBERG MD Primary Care Physician: CATHERINE VALLECILLO MD Consulting Request: 1 Consulting Specialty: Plastic Surgery Consulting Physician: Dr. Dhillon Reason for Consult: Follow up for possible surgical site infection after the breast surgery Consulting Request: 2 Consulting Specialty: Infectious Disease Consulting Physician: Dr. Nick Romeo Reason for Consult: possible surgical site infection Hospital Course: Ms Ochoa is a pleasant 36-year-old female with past medical history of asthma , and morbid obesity, and a history of MRSA in 2016, who presented to the emergency department after undergoing bilateral breast reduction surgery on with complaints of worsening pain and rash at surgical sites bilaterally. She took one dose of Keflex before coming to the ED. She reported yellowish drainage, pain, and rash which required further investigation and was admitted. She was being managed in the general medical floor before leaving AGAINST MEDICAL ADVICE for the following issues: #Bilateral surgical site infection Since admission, she was afebrile, was started on IV Vancomycin, but started having high WBC counts despite being on it and was kept off antibiotics due to the same reason, per infectious disease consult. Plastic surgeon Dr Blas, who was the plastic surgeon for the initial operation had suggested ID consultation. Dr Romeo from ID service suggested to follow her off antibiotic and to get a diagnostic/therapeutic tap under ultrasound guidance bilaterally, and study the fluid with stains and cultures. Initial skin swab culture showed coagulase negative Staph aureus which was not considered the main reason of the possible surgical site infection. Results of the aspiration were not fully obtained when patient left the hospital. So she was still off antibiotics when she left [facility]. She was explained about the need to further work-up and find out if she needed further treatment/antibiotics/surgical revision whichever necessary, but she insisted on leaving due to family issues. She was made aware of not treating and about the complications of her existing condition, including full blown abscess, which can lead to sepsis which in turn is a life threatening condition. She was counseled by me as well as the attending physician Dr Goldberg multiple times. She has the capacity to understand, and decide for herself. She did agree to come back to emergency/seek medical help if symptoms worsen, and also to follow-up with Dr Blas (plastic surgeon). She needs daily wound dressing. #Asthma was well controlled with Albuterol. #Pain was well controlled. #She was on regular diet. #She holds a FULL CODE STATUS. # Allergies: Coded Allergies: No Known Drug Allergies (Intermediate, NONE 01/24/17) shellfish derived (SWELLING AROUND AND IN EYES, ITCHING THROAT 03/05/16) Significant Procedures: Ultrasound of bilateral breast: 01/26/17: FINDINGS: Left breast: In the deep soft tissues of the 3 to 4:00 position of the left breast, 20 cm from the nipple, a complex appearing 9.7 x 3.3 x 11.5 cm focal irregularly-shaped fluid collection is seen with multiple internal septations, some of which are mildly thickened. With color Doppler imaging, no definite internal flow is identified. The overlying skin throughout the inferior left breast is abnormally thickened and mildly hyperemic, measuring up to 0.5 cm in thickness. No significant fluid collections are seen in the upper left breast. No axillary adenopathy is seen. Right breast: In the deep soft tissues of the 3:00 position of the right breast, 10 cm from the nipple, an elongated loculated fluid collection is seen with thin internal septations and no vascular flow, measuring at least 8.0 x 1.0 x 4.6 cm. A second complex fluid collection with internal septations and no vascular flow is seen in the right breast 9:00, 15 cm from the nipple, measuring at least 11.2 x 4.0 x 10.8 cm. A small fluid collection is seen in the upper outer quadrant of the right breast as well on real-time scanning. This was not specifically measured. Diffuse skin thickening is seen, measuring up to 0.5 cm in thickness, primarily in the inner and outer lower breast. No axillary adenopathy is seen. IMPRESSION: 1. Bilateral large complex appearing fluid collections are seen bilaterally in the deep soft tissues of the breasts, primarily involving the lower outer quadrant of the left breast and the lower outer and lower inner quadrants of the right breast. Findings are most consistent with large complex seroma cavities. Close clinical correlation is requested to assess for superinfection of these fluid collections/abscesses in the setting of positive bacterial cultures. 2. Diffuse bilateral skin edema and thickening and hyperemia, most prominently involving the inferior aspects of both breasts, consistent with cellulitis. ASSESSMENT: ACR BI-RADS 2: Benign finding. RECOMMENDATIONS: Management, including aspiration/drainage/debridement as clinically appropriate. Findings discussed with Dr. Carmen Stephens, 01/26/2017, 12:45 PM. DICTATED BY: WEI ELIZABETH MD DATE/TIME DICTATED:01/26/171229 CHILD CARE GROUP LEADER:CLAUDIA DATE/TIME TRANSCRIBED:01/26/171229 Ultrasound guided aspiration of b/l breast cystic collections: (Diagnostic): : IMPRESSION: Successful evacuation of bilateral breast seromas. Separate samples from each side were sent for the requested laboratory exams. DICTATED BY: KANDICE ANDERS MD DATE/TIME DICTATED:01/28/171302 CHILD CARE GROUP LEADER:FELIPE DATE/TIME TRANSCRIBED:01/28/171302 Pertinent Lab Results: Patient left AMA on 01/28/17, while she still had high WBC count, as mentioned below: 01/28/17 0624: Anion Gap 6, Estimated GFR > 60, BUN/Creatinine Ratio 11.4, PT Pending, INR Pending, CBC w Diff Pending, WBC Pending, RBC Pending, Hgb Pending, Hct Pending, MCV Pending, MCH Pending, RDW Pending, Plt Count Pending, MPV Pending, PUBS MCHC Pending 01/27/17 1140: Random Vancomycin 6.9 01/27/17 0800: CBC w Diff NO MAN DIFF REQ, RBC 4.08 L, MCV 88.3, MCH 29.1, RDW 12.9, MPV 6.5 L, Gran % 72.1, Lymphocytes % 20.1 L, Monocytes % 2.3, Eosinophils % 5.3 H, Basophils % 0.2, Absolute Granulocytes 12.5 H, Absolute Lymphocytes 3.5 H, Absolute Monocytes 0.4, Absolute Eosinophils 0.9, Absolute Basophils 0, PUBS MCHC 33.0 Disposition Summary Disposition Principal Diagnosis: Bilateral surgical site infection, following bilateral breast reduction surgery Additional Diagnosis: Morbid obesity, asthma, history of MRSA infection Discharge Disposition: left against medical adv Discharge Instructions General Discharge Information Code Status: Full Code Patient's Diet: Regular diet Patient's Activity: As tolerated Follow-Up Instructions/Appts: YOU ARE LEAVING AGAINST MEDICAL ADVICE. Follow up with Dr. Snow on Thursday or earlier for further care and evaluation of your recent surgery. Please return to emergency if symptoms worsen. Continue all your previous medications. Medications at Discharge Discharge Medications: Stop taking the following medications: Cephalexin (Cephalexin) 500 MG CAPSULE ORAL TWICE DAILY Qty = 28 Continue taking these medications: Albuterol Sulfate (Albuterol Sulfate Hfa) 0.09 MG/Actuation LEE 2 PUFF Inhale through mouth as needed for ASTHMA Qty = 7 Instructions: 90 MCG PER PUFF Comments: PER PT Levonorgestrel (Mirena) 20 MCG/24 HOUR (5 YEARS) IUD 1 Tablet ORAL DAILY Comments: NOT GIVEN IN HOSPITAL Ibuprofen (Ibuprofen) 600 MG TABLET 1 Tablet ORAL THREE TIMES DAILY Qty = 21 Instructions: with food Comments: NOT GIVEN HOSPITAL Copies To: AVEL WILLS,CATHERINE Moe Attending MD Review Statement Documenting Attending: TRUDY GOLDBERG MD Other Findings: agree with the above discharge summary.
--- NOTE | 2017-01-28 16:36 | PN- Att Addend ---
Attending MD Review Statement Attending Statement Attending MD Statement: examined this patient, discuss w/resident/PA/RETORT OPERATOR, agreed w/resident/PA/RETORT OPERATOR, reviewed EMR data (avail), discussed w/nursing Attending Assessment/Plan: Laboratory Tests 01/28/17 1214: Lymphocytes 77, Misc Hematology Test , Fluid WBC 3168 H, Fld Total RBCs Counted 84373 H 01/28/17 1200: Lymphocytes 76, Misc Hematology Test , Fluid WBC 1485 H, Fld Total RBCs Counted 6138 H 01/28/17 0624: Anion Gap 6, Estimated GFR > 60, BUN/Creatinine Ratio 11.4, PT 11.5, INR 1.10, CBC w Diff NO MAN DIFF REQ, RBC 4.05 L, MCV 87.4, MCH 28.9, RDW 13.3, MPV 6.7 L, Gran % 72.0, Lymphocytes % 17.7 L, Monocytes % 4.0, Eosinophils % 5.8 H, Basophils % 0.5, Absolute Granulocytes 14.2 H, Absolute Lymphocytes 3.5 H, Absolute Monocytes 0.8 H, Absolute Eosinophils 1.1, Absolute Basophils 0.1, PUBS MCHC 33.1 Vital Signs Date Time Temp Pulse Resp B/P Pulse O2 O2 Flow FiO2 Ox Delivery Rate 01/28 1428 98.0 100 20 126/70 96 Room Air 01/28 0733 98.3 95 18 118/68 94 Room Air 01/27 2158 97.5 84 18 126/70 96 Room Air Patient seen and examined at bedside and discussed with patient the care plan. Patient's white count has increased to 19.7 and also patient had IR guided aspiration of her fluid collections in both breasts. Cell count of the fluid showed serous sanguinous fluid with high white count. We will have to await further cultures to decide on the antibiotic. But patient wants to be discharged home today as she does not have any one to take care of her daughter and also to drop her to school tomorrow. Patient is going to sign out AGAINST MEDICAL ADVICE. Patient was made aware of the risks involved with that which are not limited to worsening of her infection and spread of infection to rest of her body and even . Patient does understand the risks and is below follow- up with Dr. Snow as an outpatient. She will call Dr. Snow's clinic to follow- up on the culture results and decide on the antibiotic course. Patient was told to come back to the ER in case of worsening symptoms or in case she gets fevers or redness in the breast area or worsening of pain in the breast area.
--- NOTE | 2017-01-28 16:41 | NUR ---
NURSING NOTE: PT LEAVING AMA. BETHANY CORONEL #[id number] AT BEDSIDE TO EXPLAIN THE RISKS OF LEAVING AMA. PT STILL WISHES TO LEAVE AMA. AMA PAPERWORK SIGNED BY PT AND BETHANY CORONEL. PT A&O, VSS, DRESSING SUPPLIES SENT WITH PT. PT TO F/U WITH DR. DAVID TOMORROW.
== END 2017-01-28 17:00 | disposition left against medical advice (07) | DRG 721 ==
LOC: ENRESERVTM → ENRESERVDT → ERH 11:34 → ERHI 13:21 → 2NB 13:21
PROVIDERS: Internal Medicine; Internal Medicine Interventional Cardiology; Nurse Practitioner Family; Student in an Organized Health Care Education/Training Program; ADMIT Internal Medicine
PROC: 0H9 Skin and Breast, Drainage (ICD-10-PCS; principal; 2017-01-28)
DX: T81.4XXA Infection following a procedure, initial encounter (principal); A41.9 Sepsis, unspecified organism; E66.01 Morbid (severe) obesity due to excess calories; Z68.41 Body mass index [BMI] 40.0-44.9, adult; N61.0 Mastitis without abscess; J45.909 Unspecified asthma, uncomplicated; Z87.891 Personal history of nicotine dependence
CPT/HCPCS: 2NBP; 87075; 87184; 36415; 82436; 87040; 87070; 87147; 88305; 96374; 96375; J1650; J3370; J3490; J7060